=== PATIENT | male | born 1940 | race Caucasian/White ===

== ENCOUNTER → 2018-02-20 | Outpatient (CLI) | payer OTHER | END | disposition home or self-care (01) | LOC: PCVCCLINIC 14:43 | DX: I10 Essential (primary) hypertension (principal); I35.1 Nonrheumatic aortic (valve) insufficiency; R06.09 Other forms of dyspnea; E78.00 Pure hypercholesterolemia, unspecified; Z79.899 Other long term (current) drug therapy; Z79.82 Long term (current) use of aspirin; Z87.891 Personal history of nicotine dependence | CPT/HCPCS: 93005; G0463 ==

== ENCOUNTER → 2018-03-13 | Outpatient (CLI) | payer OTHER ==
[~2018-03-13] MED LIST: REGADENOSON 0.4 MG/5 ML DISP.SYRIN. IV
== END | disposition home or self-care (01) ==
LOC: PCVCIMAG 10:31
DX: I08.2 Rheumatic disorders of both aortic and tricuspid valves (principal); I10 Essential (primary) hypertension; R60.9 Edema, unspecified; R06.09 Other forms of dyspnea; E78.5 Hyperlipidemia, unspecified; Z87.891 Personal history of nicotine dependence; Z79.82 Long term (current) use of aspirin; Z79.899 Other long term (current) drug therapy
CPT/HCPCS: 78452; 93017; 93306; A9500; G0463; J2785

== ENCOUNTER → 2018-09-28 | Outpatient (CLI) | payer OTHER | END | disposition home or self-care (01) | LOC: PCVCCLINIC 15:06 | PROVIDERS: ATTEND Internal Medicine Cardiovascular Disease | DX: I10 Essential (primary) hypertension (principal); I35.0 Nonrheumatic aortic (valve) stenosis; R60.9 Edema, unspecified; E78.5 Hyperlipidemia, unspecified; Z79.82 Long term (current) use of aspirin; Z79.899 Other long term (current) drug therapy; Z87.891 Personal history of nicotine dependence | CPT/HCPCS: 93005; G0463 ==

== ENCOUNTER → 2019-11-05 | Outpatient (CLI) | payer MEDICARE, OTHER ==
--- NOTE | 2019-11-05 14:58 | PCVCIMAG ---
APPROVED REPORT Study performed: 11/05/2019 13:36:17 EXAM: Comprehensive 2D, Doppler, and color-flow Echocardiogram Patient Location: Echo lab Status: routine BSA: 2.24 HR: 68 bpmBP: 158/70 mmHg Rhythm: NSR Other Information Study Quality: Adequate Risk Factors: Cardiac Risk Factors: HTN Indications Aortic stenosis 2D Dimensions IVSd: 12.67 (7-11mm)LVOT Diam: 20.89 (18-24mm) LVDd: 37.37 mm PWd: 12.54 (7-11mm)Ascending Ao: 35.59 (22-36mm) LVDs: 30.59 (25-40mm) Left Atrium: 40.72 (27-40mm) Aortic Root: 33.73 mm LV Single Plane 4CH: 52.71 % LV Single Plane 2CH: 50.64 % Biplane EF: 51.1 % Volumes Left Atrial Volume (Systole) Single Plane 4CH: 63.12 mLSingle Plane 2CH: 97.16 mL LA ESV Index: 36.00 mL/m2 Aortic Valve AoV Peak Carlin.: 3.27 m/s AO Peak Gr.: 42.82 mmHgLVOT Max P.23 mmHg AO Mean Gr.: 23.86 mmHgLVOT Mean P.70 mmHg AO V2 Mean: 2.30 m/sLVOT Max V: 1.14 m/s AO V2 VTI: 73.24 cmLVOT Mean V: 0.79 m/s OANH (VTI): 1.10 [id number] V1 VTI: 23.41 cm OANH Vmax: 1.20 cm2 SV (LVOT): 80.21 mL Mitral Valve MV Peak Gr.: 14.87 mmHg MV Mean Gr.: 5.56 mmHgE/A Ratio: 0.8 MV Decel. Time: 251.41 ms MV E Max Carlin.: 1.40 m/s MV A Carlin.: 1.74 m/s MV Max Carlin.: 1.93 m/s MV Mean Carlin.: 1.09 m/s MV VTI: 522.94 mm MVA VTI: 153.39 mm2 MV PHT: 111.95 ms MVA (PHT): 1.97 cm2 IVRT: 100.35 ms Pulmonary Valve PV Peak Carlin.: 0.95 m/sPV Peak Gr.: 3.62 mmHg Pulmonary Vein P Vein S: 0.42 m/sP Vein A: 0.34 m/s P Vein D: 0.52 m/sP Vein A Dur.: 152.2 msec P Vein S/D Ratio: 0.81 Tricuspid Valve TR Peak Carlin.: 2.49 m/s TR Peak Gr.: 24.77 mmHg Left Ventricle The left ventricle is normal size. There is normal LV segmental wall motion. Mild concentric left ventricular hypertrophy. Left ventricular systolic function is normal. The left ventricular ejection fraction is within the normal range. LVEF is 55%. Grade I - abnormal relaxation pattern. Right Ventricle The right ventricle is normal size. The right ventricular systolic function is normal. Atria Left atrium is mildly dilated. The right atrium size is normal. Aortic Valve The aortic valve is moderately to severely calcified. The aortic valve is trileaflet. Trace aortic regurgitation. There is moderate valvular aortic stenosis. Calculated aortic valve area is 1.2 cm2 with maximum pressure gradient of 43 mmHg and mean pressure gradient of 24 mmHg. Mitral Valve Mitral valve leaflets are calcified. Trace mitral regurgitation. Mild mitral stenosis. Calculated mitral valve area is 2 cm2 with maximum pressure gradient of 14.9 mmHg and mean pressure gradient of 5.6 mmHg. Tricuspid Valve The tricuspid valve is normal in structure. Mild tricuspid regurgitation with PAP of 32 mmHg. Pulmonic Valve The pulmonary valve is normal in structure. There is no pulmonic valvular regurgitation. Great Vessels The aortic root is normal in size. IVC is normal in size and collapses >50% with inspiration. Pericardium There is no pericardial effusion. There is no pleural effusion. <Conclusion> The left ventricle is normal size. Mild concentric left ventricular hypertrophy. Left ventricular systolic function is normal. Grade I - abnormal relaxation pattern. The right ventricle is normal size. Left atrium is mildly dilated. There is moderate valvular aortic stenosis. Mitral valve leaflets are calcified. Mild mitral stenosis. Mild tricuspid regurgitation with PAP of 32 mmHg.
== END | disposition home or self-care (01) ==
LOC: PCVCIMAG 13:00
PROVIDERS: ATTEND Internal Medicine Cardiovascular Disease
DX: Z01.810 Encounter for preprocedural cardiovascular examination (principal); I08.3 Combined rheumatic disorders of mitral, aortic and tricuspid valves; R60.9 Edema, unspecified; K21.9 Gastro-esophageal reflux disease without esophagitis; E78.5 Hyperlipidemia, unspecified; I10 Essential (primary) hypertension; Z79.899 Other long term (current) drug therapy; Z87.891 Personal history of nicotine dependence
CPT/HCPCS: 93005; 93306; G0463